=== PATIENT | male | born 1980 | race Caucasian/White ===

== ENCOUNTER 2021-12-06 13:04 | Emergency (ER) | payer BC | END 2021-12-06 16:00 | disposition home or self-care (01) | LOC: ER1 13:04 | DX: U07.1 COVID-19 (principal) | CPT/HCPCS: 99284; U0002 ==

== ENCOUNTER → 2021-12-08 | Outpatient (CLI) | payer BC ==
[~2021-12-08] VITALS: Ht 177.8 cm; Wt 81.6 kg
== END ==
LOC: EROP 11:35
DX: U07.1 COVID-19 (principal); Z23 Encounter for immunization
CPT/HCPCS: M0247; Q0247

== ENCOUNTER → 2022-02-04 | Outpatient (CLI) | payer BC | LOC: OPSV 14:00 | DX: G36.0 Neuromyelitis optica [Devic] (principal) | CPT/HCPCS: 96365; J2930; J7070 ==

== ENCOUNTER → 2022-02-05 | Outpatient (CLI) | payer BC ==
[~2022-02-05] VITALS: Ht 177.8 cm; Wt 81.6 kg
== END ==
LOC: OPSV 14:00
DX: G36.0 Neuromyelitis optica [Devic] (principal)
CPT/HCPCS: 96365; J2930

== ENCOUNTER 2022-05-11 20:23 | Emergency (ER) | payer BC ==
[2022-05-11] MEDS ORDERED: BACTRIM DS TAB1 EACH PO (22:11)
[2022-05-11] MEDS ORDERED: OMNICEF 300 MG300 MG PO (22:11)
== END 2022-05-11 22:40 | disposition home or self-care (01) ==
LOC: ER1 20:23
DX: L02.811 Cutaneous abscess of head [any part, except face] (principal)
CPT/HCPCS: 10060; 99282

== ENCOUNTER 2022-06-02 09:47 | Emergency (ER) | payer BC ==
[~2022-06-02] VITALS: Ht 177.8 cm; Wt 83.9 kg
[~2022-06-02 09:47] MED LIST: BACTRIM DS TAB1 EACH PO; OMNICEF 300 MG300 MG PO
[2022-06-02 10:17] LABS: HEMOGLOBIN 14.7 gm/dl (14.0-17.5); RED BLOOD COUNT 5.17 M/UL (4.20-5.50); WHITE BLOOD COUNT 5.2 K/UL (4.5-11.0)
[2022-06-02 10:52] LABS: BUN/CREATININE RATIO 18 (0-10)
== END 2022-06-02 14:09 | disposition home or self-care (01) ==
LOC: ER1 09:47
PROVIDERS: Family Medicine
DX: U07.1 COVID-19 (principal)
CPT/HCPCS: 0240U; 71045; 80053; 82550; 82553; 84484; 85025; 93005; 99284; M0222

== ENCOUNTER → 2022-06-30 | Outpatient (CLI) | payer BC ==
[2022-06-30 16:28] LABS: HEMOGLOBIN 14.4 gm/dl (14.0-17.5); RED BLOOD COUNT 5.14 M/UL (4.20-5.50); WHITE BLOOD COUNT 5.5 K/UL (4.5-11.0)
[2022-06-30 17:02] LABS: BUN/CREATININE RATIO 16 (0-10)
== END ==
LOC: LAB 15:48
PROVIDERS: Psychiatry & Neurology Neurology
DX: G37.8 Other specified demyelinating diseases of central nervous system (principal)
CPT/HCPCS: 36415; 80053; 84443; 85025

== ENCOUNTER → 2022-08-04 | Outpatient (CLI) | payer BC ==
[~2022-08-04] VITALS: Ht 180.3 cm; Wt 86.2 kg
== END ==
LOC: OPSV 08-03 08:00
DX: G36.0 Neuromyelitis optica [Devic] (principal); G37.8 Other specified demyelinating diseases of central nervous system
CPT/HCPCS: 96375; 96413; 96415; J2930; J7050; J9312